=== PATIENT | male | born 1980 | race Two or more races ===

== ENCOUNTER 2018-02-05 10:24 | Inpatient (IN) | payer OTHER ==
[~2018-02-05] VITALS: Ht 170.2 cm; Wt 77.1 kg
[2018-02-05 10:30] VITALS: Ht 170.2 cm; Wt 77.1 kg
[2018-02-05 11:39] LABS: BASOPHIL % 0.4 % (0-2); PLATELET COUNT 216 x10^3mcL (130-400)
[2018-02-05 12:01] LABS: CALCIUM 7.7 mg/dL (8.5-10.1); CARBON DIOXIDE 29.3 mmol/L (21-32); CHLORIDE SERUM 109 mmol/L (98-107); CREATININE SERUM 0.8 mg/dL (0.7-1.3); GFR1 > 60 mL/min; GLUCOSE SERUM 136 mg/dL (74-106); POTASSIUM SERUM 3.3 mmol/L (3.5-5.1); SODIUM SERUM 147 mmol/L (136-145)
[2018-02-05 12:08] LABS: ALBUMIN 3.1 g/dL (3.4-5.0); ALKALINE PHOSPHATASE 83 U/L (46-116); ALT/SGPT 27 U/L (16-63); AST/SGOT 24 U/L (15-37); BILIRUBIN TOTAL 0.18 mg/dL (0.20-1.00); TOTAL PROTEIN, SERUM 6.7 g/dL (6.4-8.2)
[2018-02-05 13:37] LABS: AMPHETAMINE QUAL UR NONE DETECTED (See below)
[2018-02-06] MEDS ORDERED: GOOD SENSE OMEP20 MG PO (11:58)
[2018-02-06] MEDS ORDERED: GABAPENTIN800 M1 PO (11:59)
[2018-02-06] MEDS ORDERED: TRAZODONE50 M1 PO (11:59)
[2018-02-06] MEDS ORDERED: WELLBUTRIN XL300 M1 PO (12:00)
[2018-02-06 12:29] VITALS: BP 145/100
[2018-02-06 13:05] LABS: CHOLESTEROL/HDL RATIO 3.4; MAGNESIUM 1.7 mg/dL (1.8-2.4); PHOSPHOROUS 2.5 mg/dL (2.5-4.9)
[2018-02-06 13:14] LABS: T3 TOTAL 0.92 ng/mL
[2018-02-06 13:15] LABS: FREE T4 0.72 ng/dL (0.76-1.46); FREE THYROXINE INDEX 1.5 ug/dL (1.4-4.5); T4(THYROXINE) 4.8 ug/dL (4.7-13.3)
[2018-02-06 13:37] LABS: AMPHETAMINE QUAL UR NONE DETECTED (See below)
[2018-02-06 20:53] VITALS: BP 121/77
[2018-02-07 06:05] VITALS: BP 130/82
[2018-02-07 06:07] LABS: BASOPHIL % 0.4 % (0-2); PLATELET COUNT 193 x10^3mcL (130-400)
[2018-02-07 06:24] LABS: CHLORIDE SERUM 106 mmol/L (98-107); CREATININE SERUM 0.9 mg/dL (0.7-1.3); GFR1 > 60 mL/min; GLUCOSE SERUM 136 mg/dL (74-106); MAGNESIUM 1.8 mg/dL (1.8-2.4); PHOSPHOROUS 3.2 mg/dL (2.5-4.9); SODIUM SERUM 142 mmol/L (136-145)
[2018-02-07 06:34] LABS: RED CELL DISTRIBUTION WIDTH 14.9 % (11.5-14.5)
[2018-02-07 08:30] VITALS: BP 145/94
[2018-02-07 17:50] VITALS: BP 132/87
[2018-02-07 19:20] VITALS: BP 140/88
[2018-02-08 06:16] LABS: BASOPHIL % 0.8 % (0-2); PLATELET COUNT 201 x10^3mcL (130-400)
[2018-02-08 06:22] LABS: RED CELL DISTRIBUTION WIDTH 14.9 % (11.5-14.5)
[2018-02-08 06:23] LABS: CALCIUM 8.9 mg/dL (8.5-10.1); CARBON DIOXIDE 26.2 mmol/L (21-32); CHLORIDE SERUM 107 mmol/L (98-107); CREATININE SERUM 0.9 mg/dL (0.7-1.3); GFR1 > 60 mL/min; GLUCOSE SERUM 98 mg/dL (74-106); POTASSIUM SERUM 4.1 mmol/L (3.5-5.1); SODIUM SERUM 141 mmol/L (136-145)
[2018-02-08 06:53] VITALS: BP 115/70
[2018-02-08 08:21] VITALS: BP 142/79
[2018-02-08 12:20] VITALS: BP 148/102
[2018-02-08 18:21] VITALS: BP 149/97
[2018-02-08 19:50] VITALS: BP 151/98
[2018-02-09 05:59] VITALS: BP 129/86
[2018-02-09 08:40] VITALS: BP 129/86
== END 2018-02-09 10:10 | disposition home or self-care (01) | DRG 775 ==
LOC: ED 10:24 → DU 12:11 → MU 02-06 10:57 → DU 02-06 12:11
PROVIDERS: Emergency Medicine; Internal Medicine
DX: F10.129 Alcohol abuse with intoxication, unspecified (principal); G92 Toxic encephalopathy; E44.0 Moderate protein-calorie malnutrition; R45.851 Suicidal ideations; E83.42 Hypomagnesemia; E87.6 Hypokalemia; F32.9 Major depressive disorder, single episode, unspecified; Z68.22 Body mass index [BMI] 22.0-22.9, adult
CPT/HCPCS: 84439; G0480; J2060; J7030; Q0092